=== PATIENT | male | born 1955 | race Caucasian/White ===

== ENCOUNTER 2017-09-22 11:24 | Day surgery (SDC) | payer OTHER ==
[~2017-09-22] VITALS: Ht 177.8 cm; Wt 70.8 kg
== END 2017-09-22 23:17 | disposition home or self-care (01) ==
LOC: ORSCMMR 11:24
PROVIDERS: Orthopaedic Surgery
PROC: 0LQ30ZZ Repair Right Upper Arm Tendon, Open Approach (ICD-10-PCS; principal; 2017-09-22 12:30)
DX: S46.211A Strain of muscle, fascia and tendon of other parts of biceps, right arm, initial encounter (principal)
CPT/HCPCS: C1713; J0690; J1100; J1885; J2250; J2405; J3010; J7120

== ENCOUNTER → 2018-11-22 | Outpatient (CLI) | payer MEDICARE, OTHER | END | disposition home or self-care (01) | LOC: PLD 11:17 → LAB SHORT 11:17 | DX: L57.0 Actinic keratosis (principal) | CPT/HCPCS: 88305 ==